=== PATIENT | female | born 1990 | race Caucasian/White ===

== ENCOUNTER 2023-04-18 16:45 | Emergency (ER) | payer OTHER, SELFPAY ==
--- NOTE | ~2023-04-18 | XR_ITS ---
EXAM: XR knee RT 3V DATE: 04/18/2023 17:33 HISTORY: fall 3 days ago, right knee pain . COMPARISON: X-ray right tibia/fibula 04/27/2009. FINDINGS: Normal mineralization. No fracture or dislocation. No lytic or blastic lesion. Mild tricom partmental osteoarthritis. No erosion or periosteal change. Soft tissues within normal limits. Small volume joint fluid. IMPRESSION: No acute osseous finding in the right knee. Reviewed, dictated and finalized at location K. [employer]
[2023-04-18 17:22] VITALS: BP 114/86; PULSE 93; RESP 16; TEMP 37.3; O2SAT 100
--- NOTE | 2023-04-18 17:26 | ED.LOWEXIN ---
HPI - Extremity Injury (Lower) General Chief Complaint: Extremity Injury, Lower Stated Complaint: Injured Source: patient and RN notes reviewed Mode of arrival: ambulatory Limitations: no limitations History of Present Illness HPI Narrative: Patient is a 33-year-old female who presents to the [facility] with complaints of right knee pain. Patient states that on Monday she tripped over a rock when her foot got stuck, and she landed on her right knee. There is an abrasion noted to her right knee. She reports decreased range of motion with inability to fully flex and extend the knee. Sensation is intact and she denies numbness. She is neurovascularly intact distally. There is some mild swelling around the knee. She states that she feels a pulling sensation both medially and laterally when ambulating. She denies any other injury. Denies hitting head or loss of consciousness. Related Data Allergies Allergy/AdvReac Type Severity Reaction Status Date / Time No Known Allergies Allergy Mild Verified 03/06/12 12:53 Review of Systems Review of Systems: CONSTITUTIONAL: Denies fever, chills, or sweats. EYES: Denies visual changes, redness, or discharge. ENT: Denies otalgia and sore throat CARDIOVASCULAR: Denies chest pain, palpitations, or edema. RESPIRATORY: Denies cough or dyspnea. GASTROINTESTINAL: Denies abdominal pain, nausea, vomiting, or diarrhea. GENITOURINARY: Denies dysuria or hematuria. SKIN: Denies rash or itching. MUSCULOSKELETAL: Denies back pain or myalgia. Reports right knee pain. NEUROLOGIC: Denies headache, numbness, or weakness. Pertinent positives per HPI. PMFSH Comments At the time of my signature, I reviewed and agree with the nursing past medical, surgical, social, and family history. There is no relevant family history pertinent to the patient complaint. Exam Narrative: GENERAL: This is a well-nourished, well-developed patient, in no apparent distress. HEAD: normocephalic, atraumatic. EYES: Sclera clear/white. Vision is grossly intact. EARS: External ears normal, auditory canals clear and without drainage, TMs normal without perforation. Hearing grossly intact. NOSE: External nose normal. THROAT: Mucous membranes moist, posterior pharynx clear. NECK: Neck supple, non-tender without lymphadenopathy, masses or thyromegaly. CARDIOVASCULAR: Regular rate and rhythm without murmurs, gallops, or rubs. RESPIRATORY: Clear to auscultation. Breath sounds equal bilaterally. No wheezes, rales, or rhonchi. GASTROINTESTINAL: Abdomen soft, non-tender, nondistended. Bowel sounds are active. No hepato-splenomegaly, or palpable masses. No guarding. SKIN: Right knee scabbed abrasion with no signs of infection. NEURO: awake, alert, and oriented to person, place and time. There were no obvious focal neurologic abnormalities. EXTREMITIES: Patient is unable to bear weight and ambulate without pain. Abrasion noted. No overlying erythema or warmth. The R knee is with/without obvious asymmetry or deformity when comparing to the L. Patient is unable to do a deep knee bend with symmetry., Unable to fully extended knee, internal and external rotation. Tender to palpate of the patella. Distal motor and neurovascular status intact. BACK: Nontender without deformity or crepitance. No flank tenderness. Course Course Level of Care: Express Care Visit Vital Signs Vital signs: Vital Signs Temperature 99.1 F 04/18/23 17:22 Pulse Rate 93 04/18/23 17:22 Respiratory Rate 16 04/18/23 17:22 Blood Pressure 114/86 04/18/23 17:22 Pulse Oximetry 100 04/18/23 17:22 Temperature 99.1 F 04/18/23 17:22 Pulse Rate 93 04/18/23 17:22 Respiratory Rate 16 04/18/23 17:22 Blood Pressure 114/86 04/18/23 17:22 Pulse Oximetry 100 04/18/23 17:22 Reviewed MDM - Extremity Injury (Lower) MDM Narrative Medical decision making narrative: Use the RICE method at home. May take ibuprofen and/or Tylenol if needed.
== END 2023-04-18 17:55 | disposition home or self-care (01) ==
PROVIDERS: Emergency Provider Nurse Practitioner
DX: S83.91XA Sprain of unspecified site of right knee, initial encounter (principal); W18.09XA Striking against other object with subsequent fall, initial encounter
CPT/HCPCS: 73562; 99213; G0463; L1830